=== PATIENT | male | born 1995 | race Caucasian/White ===

== ENCOUNTER 2023-02-21 20:44 | Emergency (ER) | payer OTHER ==
[2023-02-21 20:50] VITALS: BP 113/65; PULSE 77; RESP 18; TEMP 98.8; BMI 24.3
[2023-02-21] MEDS ORDERED: ACETAMINOPHEN 500 MG TABLET (FP) PO ONE (21:23)
[2023-02-21] MEDS ORDERED: METHOCARBAMOL 500 MG TABLET PO ONE (21:24)
[2023-02-21] MEDS ORDERED: LIDOCAINE 5% TOPICAL PATCH TP ONE (21:24)
[2023-02-21] MEDS ORDERED: LIDOCAINE 5% TOPICAL PATCH ONE (21:29)
[2023-02-21] MEDS ORDERED: ACETAMINOPHEN 500 MG TABLET (FP) ONE (21:30)
[2023-02-21] MEDS ORDERED: METHOCARBAMOL 500 MG TABLET ONE (21:30)
[2023-02-22] MEDS ORDERED: LIDOCAINE PATCH REMOVAL MC ONE (10:00)
== END 2023-02-21 22:06 | disposition home or self-care (01) ==
LOC: JER 20:44
DX: R51.9 Headache, unspecified (principal); M54.9 Dorsalgia, unspecified; V43.52XA Car driver injured in collision with other type car in traffic accident, initial encounter
CPT/HCPCS: 99283-25